=== PATIENT | male | born 2005 | race Caucasian/White ===

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

== ENCOUNTER 2025-01-26 11:46 | Emergency (ER) | payer OTHER ==
[~2025-01-26] VITALS: Ht 175.3 cm; Wt 86.2 kg
[2025-01-26 11:52] VITALS: O2SAT 100
[2025-01-26] MEDS ORDERED: IBUP-2030 MT (13:49)
[2025-01-26] MEDS: IBUPROFEN 800MG TABLET PO ONE (14:13)
[2025-01-26 14:29] VITALS: BP 120/60; PULSE 66; RESP 12; TEMP 37; O2SAT 100
== END 2025-01-26 14:39 | disposition home or self-care (01) ==
LOC: ER 11:46
DX: S43.005A Unspecified dislocation of left shoulder joint, initial encounter (principal); X58.XXXA Exposure to other specified factors, initial encounter; Y93.89 Activity, other specified; Y92.89 Other specified places as the place of occurrence of the external cause; Y99.8 Other external cause status
CPT/HCPCS: 23650; 73030; 99284; A4565

== ENCOUNTER 2025-05-04 18:44 | Emergency (ER) | payer OTHER ==
[~2025-05-04] VITALS: Ht 175.3 cm; Wt 87.0 kg
[~2025-05-04 18:44] MED LIST: IBUP-2030 MT
[2025-05-04] MEDS: PROPOFOL 200MG/20ML VIAL IV ONE (20:55)
[2025-05-04 22:27] VITALS: TEMP 36.8; O2SAT 99
[2025-05-04 22:31] VITALS: BP 128/54; PULSE 74; RESP 19; TEMP 98.2; O2SAT 99
== END 2025-05-04 22:45 | disposition home or self-care (01) ==
LOC: ER 18:44
DX: S43.005A Unspecified dislocation of left shoulder joint, initial encounter (principal); X58.XXXA Exposure to other specified factors, initial encounter; Y93.89 Activity, other specified; Y92.89 Other specified places as the place of occurrence of the external cause; Y99.8 Other external cause status
CPT/HCPCS: 73030; 23650; 99152; 99291; J2704; Z7610 ×3; A4565; A4606